=== PATIENT | male | born 1950 | race Caucasian/White ===

== ENCOUNTER 2025-04-25 10:08 | Emergency (ER) | payer OTHER, MEDICARE ==
[~2025-04-25] VITALS: Ht 167.6 cm; Wt 71.2 kg
[2025-04-25] MEDS ORDERED: Morphine Sulfate 4 MG/1 ML Injection IV ONE ×2 (10:30→11:45)
[2025-04-25] MEDS ORDERED: IBUP600 PO (12:28)
[2025-04-25] MEDS ORDERED: ACET500 PO (12:28)
[2025-04-25] MEDS ORDERED: PERCOCET 10-321 EA13 PO (12:28)
== END 2025-04-25 13:29 | disposition home or self-care (01) ==
LOC: EDBD 10:08 → ER 10:08
DX: S52.501A Unspecified fracture of the lower end of right radius, initial encounter for closed fracture (principal); S82.841A Displaced bimalleolar fracture of right lower leg, initial encounter for closed fracture; W01.0XXA Fall on same level from slipping, tripping and stumbling without subsequent striking against object, initial encounter
CPT/HCPCS: 27810; 29125; 73110; 73130; 73610; 96374; 96376; 99284-25; J2270

== ENCOUNTER 2025-05-14 08:20 | Day surgery (SDC) | payer OTHER ==
[~2025-05-14] VITALS: Ht 167.6 cm; Wt 66.8 kg
[~2025-05-14 08:20] MED LIST: ACET500 PO; Bupivacaine 0.5% HCl 5 MG/ML 30MLVIAL ONE; Dexamethasone Sod Phos 10 MG/ML 1ML VIAL ONE; FentaNYL Citrate 50 MCG/ML 2 ML Injection ONE; IBUP600 PO; Midazolam HCl 1MG / ML 2ML Vial ONE; Ondansetron HCl 2 MG / ML 2ML Vial ONE; PERCOCET 10-321 EA13 PO
[2025-05-14] MEDS ORDERED: CeFAZolin Sodium 2,000 MG VIAL ONE (08:25)
[2025-05-14] MEDS ORDERED: HYDROCODONE-AC1 EA19 (08:50)
[2025-05-14] MEDS ORDERED: Bupivacaine 0.5% W/EPI 1:200000 SDV 30 ML Vial ONE (09:25)
--- NOTE | 2025-05-14 09:39 | NUR ---
05/14/25 0939 Leti Villa ON THE RIGHT LEG IN PREOP TIMEOUT AT 0927 START AT 0933 END AT 0935 PT TOLERATED WELL
--- NOTE | 2025-05-14 10:01 | NUR ---
05/14/25 1001 Sujey Fountain PT HAS FRACTURE BLISTERS ON THE MEDIAL AND LATERAL SIDE OF HIS RIGHT ANKLE AND AN EARLY ULCER FORMING ON UNDERSIDE OF THE HEEL, DR LOUIS NOTIFIED AND OK'D TO PROCEDE
--- NOTE | 2025-05-14 11:37 | NUR ---
05/14/25 1137 Rhiannon Roach REPORT RECEIVED FROM JAQUAN AND RN. PT ASLEEP UPON ARRIVAL. RIGHT FOOT ELEVATED ON PILLOW UPON ARRIVAL. PT NOT AROUSABLE TO VOICE OR TOUCH. CAP REFILL <3 SECONDS ON RIGHT TOES. RIGHT TOES PINK, WARM, DRY.
--- NOTE | 2025-05-14 12:05 | NUR ---
05/14/25 6805 Rhiannon Roach RN SPOKE WITH FAMILY MEMBER VIA PHONE AND GAVE ESTIMATED DISCHARGE TIME
== END 2025-05-14 13:11 | disposition home or self-care (01) ==
LOC: ORSCSDS 08:20
PROVIDERS: Orthopaedic Surgery
PROC: 0QSJ04Z Reposition Right Fibula with Internal Fixation Device, Open Approach (ICD-10-PCS; principal; 2025-05-14 09:45)
PROC: 0QSG04Z Reposition Right Tibia with Internal Fixation Device, Open Approach (ICD-10-PCS; principal; 2025-05-14 09:45)
DX: S82.841A Displaced bimalleolar fracture of right lower leg, initial encounter for closed fracture (principal); W01.0XXA Fall on same level from slipping, tripping and stumbling without subsequent striking against object, initial encounter
CPT/HCPCS: A9270; C1713; C1769; J0690; J1100; J2250; J2405; J2704; J3010